=== PATIENT | female | born 1995 | race Caucasian/White ===

== ENCOUNTER 2024-09-11 11:29 | Emergency (ER) | payer MEDICAID ==
[~2024-09-11] VITALS: Ht 170.2 cm; Wt 65.0 kg
[2024-09-11] MEDS ORDERED: GABA-1490 PO (11:49)
[2024-09-11] MEDS ORDERED: VYVA40CA3 PO ×2 (11:49→12:52)
[2024-09-11] MEDS ORDERED: DULO-34 PO (11:49)
[2024-09-11] MEDS ORDERED: SERO50TA PO (11:49)
[2024-09-11 13:02] VITALS: BP 131/96; TEMP 97.5; O2SAT 98
== END 2024-09-11 13:05 | disposition home or self-care (01) ==
LOC: M ED 11:29
DX: Z76.0 Encounter for issue of repeat prescription (principal); F41.9 Anxiety disorder, unspecified; F32.A Depression, unspecified; Z79.899 Other long term (current) drug therapy

== ENCOUNTER 2024-10-15 09:25 | Emergency (ER) | payer MEDICAID, OTHER ==
[~2024-10-15] VITALS: Ht 170.2 cm; Wt 66.7 kg
[~2024-10-15 09:25] MED LIST: DULO-34 PO; GABA-1490 PO; SERO50TA PO; VYVA40CA3 PO
[2024-10-15 09:27] VITALS: BP 130/89; TEMP 98.4; O2SAT 100
[2024-10-15] MEDS ORDERED: BUPR-69 PO ×2 (09:33→10:22)
[2024-10-15] MEDS ORDERED: vitamin D3 PO (09:33)
[2024-10-15] MEDS ORDERED: GABA-1490 PO (10:22)
[2024-10-15] MEDS ORDERED: DULO-34 PO (10:22)
[2024-10-15] MEDS ORDERED: KETO2SHA8 TOP (10:22)
[2024-10-15] MEDS ORDERED: SERO50TA PO (10:22)
[2024-10-15] MEDS ORDERED: VYVA40CA3 PO (10:22)
== END 2024-10-15 11:24 | disposition home or self-care (01) ==
LOC: M ED 09:25
DX: Z76.0 Encounter for issue of repeat prescription (principal); F41.9 Anxiety disorder, unspecified; F17.200 Nicotine dependence, unspecified, uncomplicated; Z79.899 Other long term (current) drug therapy

== ENCOUNTER 2024-11-15 18:11 | Inpatient (IN) | payer OTHER ==
[~2024-11-15] VITALS: Ht 170.2 cm; Wt 64.6 kg
[~2024-11-15 18:11] MED LIST changes: +BUPR-69 PO; +KETO2SHA8 TOP; +vitamin D3 PO
[2024-11-15] MEDS ORDERED: DROS1TAB6 PO (18:21)
[2024-11-15 18:52] LABS: HEMATOCRIT 35.4 % (36.0-47.0); HEMOGLOBIN 12.2 g/dl (12.0-15.5); MEAN CORPUSCULAR HGB CONC 34.5 g/dl (32.0-36.5); MEAN CORPUSCULAR VOLUME 90.1 fl (80.0-96.0); PLATELET COUNT, AUTOMATED 242 10^3/uL (150-450); RED BLOOD COUNT 3.93 10^6/uL (4.00-5.40)
[2024-11-15 19:13] LABS: BARBITURATES URINE NEGATIVE (NEGATIVE); BENZODIAZEPINES URINE NEGATIVE (NEGATIVE); CANNABINOIDS URINE NEGATIVE (NEGATIVE); COCAINE METABOLITE URINE NEGATIVE (NEGATIVE); METHADONE URINE NEGATIVE (NEGATIVE); OPIATES URINE NEGATIVE (NEGATIVE); PHENCYCLIDINE URINE NEGATIVE (NEGATIVE)
[2024-11-15 19:16] LABS: ETHYL ALCOHOL (ETHANOL) < 0.003 % (0.000-0.010)
[2024-11-15 19:17] LABS: AMPHETAMINES LEVEL URINE POSITIVE (NEGATIVE)
[2024-11-15 19:18] LABS: ALBUMIN 3.7 G/DL (3.2-5.2); ALKALINE PHOSPHATASE 34 U/L (35-104); ALT/SGPT 16 U/L (7.0-40); AST/SGOT 19 U/L (<34); BILIRUBIN,DIRECT < 0.1 MG/DL (<0.4); BILIRUBIN,TOTAL 0.2 MG/DL (0.3-1.2); BLOOD UREA NITROGEN 8 MG/DL (9-23); CALCIUM LEVEL 8.7 MG/DL (8.5-10.1); CARBON DIOXIDE LEVEL 27 MMOL/L (20-31); CHLORIDE LEVEL 106 MMOL/L (98-107); CREATININE FOR GFR 0.67 MG/DL (0.55-1.30); GLOMERULAR FILTRATION RATE > 60.0 (>60); GLUCOSE, FASTING 80 MG/DL (60-100); POTASSIUM SERUM 4.3 MMOL/L (3.5-5.1); SALICYLATE LEVEL < 3.0 MG/DL (<30); SODIUM LEVEL 140 MMOL/L (136-145); TOTAL PROTEIN 6.8 G/DL (5.7-8.2)
[2024-11-15 19:20] LABS: THYROID STIMULATING HORMONE 1.769 uIU/ML (0.55-4.78)
[2024-11-15 19:32] LABS: HCG, SERUM QUALITATIVE NEGATIVE (NEGATIVE)
[2024-11-15] MEDS: QUEtiapine FUMARATE 100 MG TAB PO ONE (21:08)
[2024-11-15] MEDS: NICOTINE 7 MG/24 HR TRANSDERMAL TD ONE (21:57)
[2024-11-16] MEDS ORDERED: SERO50TA PO (03:36)
[2024-11-16] MEDS ORDERED: KETO2SHA8 TOP (03:38)
[2024-11-16] MEDS ORDERED: IRONTAB3 PO (03:41)
[2024-11-16] MEDS ORDERED: MAGN500T6 PO (03:41)
[2024-11-16] MEDS ORDERED: OYST500C PO (03:45)
[2024-11-16] MEDS ORDERED: ZINC220CA PO (03:45)
[2024-11-16] MEDS ORDERED: MULTLIQ7 PO (03:45)
[2024-11-16] MEDS ORDERED: HOME MED LIST COMPLETE! XX SCH (03:50)
[2024-11-16] MEDS: GABAPENTIN 300 MG CAP PO SCH (10:38)
[2024-11-16] MEDS: NICOTINE 21MG/24HR 1 EA TRANSDERMAL TD ONE (11:13)
[2024-11-16] MEDS: MAGNESIUM GLUCONATE 500 MG TAB PO SCH (21:00)
[2024-11-16 21:44] VITALS: BP 118/85; TEMP 97; O2SAT 96
[2024-11-16] MEDS ORDERED: diphenhydrAMINE 25MG CAP PO PRN (22:00)
[2024-11-16] MEDS ORDERED: MAALOX 30 ML SUSP *UDC PO PRN (22:00)
[2024-11-16] MEDS ORDERED: IBUPROFEN 400MG TAB PO PRN (22:00)
[2024-11-16] MEDS ORDERED: traZODone 50 MG TAB PO PRN (22:00)
[2024-11-16] MEDS ORDERED: MOM 30ML SUSPENSION UDC PO PRN (22:00)
[2024-11-16] MEDS: QUEtiapine FUMARATE 100 MG TAB PO SCH (22:08)
[2024-11-17 06:58] VITALS: BP 108/62; TEMP 98.2; O2SAT 97
[2024-11-17] MEDS: GABAPENTIN 300 MG CAP PO SCH (08:51)
[2024-11-17] MEDS: ZINC SULFATE 220 MG CAP PO SCH (08:51)
[2024-11-17] MEDS: NICOTINE 21MG/24HR 1 EA TRANSDERMAL TD SCH (10:06)
[2024-11-17] MEDS: hydrOXYzine 50 MG TAB PO PRN (11:55)
[2024-11-17] MEDS: CARIPRAZINE 1.5MG CAPSULE (VRAYLAR) PO SCH (11:55)
[2024-11-17] MEDS: DULoxetine 20MG CAP (CYMBALTA) PO SCH (11:55)
[2024-11-17 16:15] VITALS: BP 116/80; TEMP 98.1; O2SAT 100
[2024-11-18 06:13] VITALS: BP 129/71; TEMP 97.9; O2SAT 97
[2024-11-18] MEDS: ACETAMINOPHEN 325 MG TAB PO PRN (08:30)
[2024-11-18] MEDS ORDERED: LISDEXAMFETAMINE DIMESYLATE PO SCH (09:00)
[2024-11-18] MEDS: LISDEXAMFETAMINE 40 MG PO SCH (12:47)
[2024-11-18 15:45] VITALS: BP 120/82; TEMP 97.6; O2SAT 100
[2024-11-18] MEDS: BEYAZ PO SCH (20:35)
[2024-11-18] MEDS ORDERED: DROSPIRENONE ETHINYL ESTRADIOL PO SCH (21:00)
[2024-11-19 06:52] VITALS: BP 134/85; TEMP 97.5; O2SAT 100
[2024-11-19] MEDS ORDERED: HYDR50TA70 PO (08:36)
[2024-11-19] MEDS ORDERED: DULO1CAP4 PO (08:36)
[2024-11-19] MEDS ORDERED: VRAY1.5C PO (08:36)
== END 2024-11-19 10:30 | disposition home or self-care (01) | DRG 751 ==
LOC: M ED 18:11 → M ED INP 11-16 19:07 → M PSY 11-16 21:27
PROVIDERS: ADMIT Psychiatry & Neurology Psychiatry; ATTEND Psychiatry & Neurology Psychiatry
DX: F33.1 Major depressive disorder, recurrent, moderate (principal); R45.851 Suicidal ideations; F41.1 Generalized anxiety disorder; F43.10 Post-traumatic stress disorder, unspecified; F90.9 Attention-deficit hyperactivity disorder, unspecified type; Z79.899 Other long term (current) drug therapy; F17.200 Nicotine dependence, unspecified, uncomplicated

== ENCOUNTER 2025-03-21 19:42 | Emergency (ER) | payer MEDICAID, OTHER ==
[~2025-03-21] VITALS: Ht 170.2 cm; Wt 66.8 kg
[~2025-03-21 19:42] MED LIST changes: +DROS1TAB6 PO; +DULO1CAP4 PO; +HYDR50TA70 PO; +IRONTAB3 PO; +KETO120S5 TOP; -KETO2SHA8 TOP; +MAGN500T6 PO; +MULTLIQ7 PO; +OYST500C PO; +VRAY1.5C PO; +ZINC220CA PO
[2025-03-21 20:37] LABS: PLATELET COUNT, AUTOMATED 329 10^3/uL (150-450)
[2025-03-21 20:53] LABS: CANNABINOIDS URINE NEGATIVE (NEGATIVE); PHENCYCLIDINE URINE NEGATIVE (NEGATIVE)
[2025-03-21 20:54] LABS: AMPHETAMINES LEVEL URINE NEGATIVE (NEGATIVE); BARBITURATES URINE NEGATIVE (NEGATIVE); BENZODIAZEPINES URINE NEGATIVE (NEGATIVE); COCAINE METABOLITE URINE NEGATIVE (NEGATIVE); METHADONE URINE NEGATIVE (NEGATIVE); OPIATES URINE NEGATIVE (NEGATIVE)
[2025-03-21 20:55] LABS: ETHYL ALCOHOL (ETHANOL) 0.008 % (0.000-0.010)
[2025-03-21 20:57] LABS: SALICYLATE LEVEL < 3.0 MG/DL (<30)
[2025-03-21 20:58] LABS: ALT/SGPT 18 U/L (7.0-40); AST/SGOT 17 U/L (<34); CALCIUM LEVEL 9.2 MG/DL (8.5-10.1); CARBON DIOXIDE LEVEL 26 MMOL/L (20-31); CHLORIDE LEVEL 108 MMOL/L (98-107); CREATININE FOR GFR 1.03 MG/DL (0.55-1.30); GLOMERULAR FILTRATION RATE 74.6 (>60); POTASSIUM SERUM 4.1 MMOL/L (3.5-5.1); SODIUM LEVEL 145 MMOL/L (136-145)
[2025-03-21] MEDS ORDERED: BUPR150T12 PO (21:33)
[2025-03-21] MEDS ORDERED: QUET100T2 PO (21:33)
[2025-03-21] MEDS ORDERED: BUPR-766 PO (21:33)
[2025-03-21] MEDS ORDERED: HOME MED LIST COMPLETE! XX SCH (21:35)
[2025-03-21 22:33] VITALS: BP 128/83; TEMP 98.8; O2SAT 98
== END 2025-03-21 22:35 | disposition home or self-care (01) ==
LOC: M ED 19:42
DX: F43.0 Acute stress reaction (principal); F60.3 Borderline personality disorder; F17.290 Nicotine dependence, other tobacco product, uncomplicated; Z79.3 Long term (current) use of hormonal contraceptives; Z79.899 Other long term (current) drug therapy

== ENCOUNTER 2025-04-28 12:03 | Emergency (ER) | payer OTHER ==
[~2025-04-28] VITALS: Ht 170.2 cm; Wt 67.9 kg
[~2025-04-28 12:03] MED LIST changes: +BUPR-766 PO; +BUPR150T12 PO; +QUET100T2 PO
[2025-04-28 12:57] LABS: KETONE, URINE AUTO RFX NEGATIVE (NEGATIVE); LEUKOCYTE ESTERASE UR AUTO RFX NEGATIVE (NEGATIVE); NITRITE, URINE AUTO RFX NEGATIVE (NEGATIVE); RBC, URINE AUTO RFX 0 /HPF (0-3); SQUAM EPITHELIAL CELL UR AURFX 1 /HPF (0-6); WBC, URINE AUTO RFX 0 /HPF (0-3)
[2025-04-28] MEDS: IBUPROFEN 600 MG TAB PO ONE (13:20)
[2025-04-28] MEDS ORDERED: METH-1164 PO (13:54)
[2025-04-28 14:01] VITALS: BP 128/85; TEMP 98; O2SAT 100
== END 2025-04-28 14:02 | disposition home or self-care (01) ==
LOC: M ED 12:26
DX: M62.830 Muscle spasm of back (principal); F41.9 Anxiety disorder, unspecified; F32.A Depression, unspecified; F60.3 Borderline personality disorder; F17.200 Nicotine dependence, unspecified, uncomplicated; F10.10 Alcohol abuse, uncomplicated; Z79.899 Other long term (current) drug therapy

== ENCOUNTER 2025-05-15 22:28 | Emergency (ER) | payer OTHER ==
[~2025-05-15] VITALS: Ht 170.2 cm; Wt 65.9 kg
[~2025-05-15 22:28] MED LIST changes: +METH-1164 PO
[2025-05-15 22:31] VITALS: BP 109/74; TEMP 96.7; O2SAT 97
[2025-05-15] MEDS ORDERED: WELLTAB40 PO (22:41)
[2025-05-15] MEDS ORDERED: ARIP1TAB4 PO (22:41)
== END 2025-05-15 23:55 | disposition left against medical advice (07) ==
LOC: M ED 22:28
DX: Z53.21 Procedure and treatment not carried out due to patient leaving prior to being seen by health care provider (principal)